=== PATIENT | male | born 1975 | race Two or more races ===

== ENCOUNTER 2018-01-25 15:26 | Emergency (ER) | payer SELFPAY ==
[2018-01-25 15:44] LABS: ADD MAN DIFF? NO
[2018-01-25 15:48] LABS: BASO # 0.1 x10^3/uL (0.0-0.2); BASO % 1 % (0-3); EOS % 0 % (0-3); HEMATOCRIT 42.6 % (39.0-53.0); HEMOGLOBIN 14.9 g/dL (13.0-17.5); LYMPH # 0.9 x10^3/uL (1.0-4.8); LYMPH % 17 % (24-48); MEAN CORPUSCULAR HEMOGLOBIN 33 pg (25-35); MEAN CORPUSCULAR HGB CONC 35 g/dL (31-37); MEAN CORPUSCULAR VOLUME 94 fL (79-100); MONO # 0.3 x10^3/uL (0.0-1.1); MONO % 6 % (0-9); NEUT # 3.8 x10^3uL (1.8-7.7); NEUT % 75 % (31-73); PLATELET COUNT 195 x10^3/uL (140-400); RED BLOOD COUNT 4.54 x10^6/uL (4.30-5.70); RED CELL DISTRIBUTION WIDTH 12.9 % (11.5-14.5); WHITE BLOOD COUNT 5.1 x10^3/uL (4.0-11.0)
[2018-01-25] MEDS: IV NORMAL SALINE 1000ML BAG 1,000 ML IV (15:49)
[2018-01-25 15:56] LABS: POC GLUCOSE 219 mg/dL (70-99)
[2018-01-25 15:59] LABS: ANION GAP 16 (6-14); BLOOD UREA NITROGEN 10 mg/dL (8-26); BUN/CREATININE RATIO 13 (6-20); CALCIUM 8.6 mg/dL (8.5-10.1); CARBON DIOXIDE 21 mmol/L (21-32); CHLORIDE 97 mmol/L (98-107); CREATININE 0.8 mg/dL (0.7-1.3); GFR 105.5; GLUCOSE 237 mg/dL (70-99); POTASSIUM 4.1 mmol/L (3.5-5.1); SODIUM 134 mmol/L (136-145)
[2018-01-25 16:00] LABS: ETHANOL 38 mg/dL (0-10)
[2018-01-25 16:05] LABS: ALBUMIN 4.2 g/dL (3.4-5.0); ALBUMIN/GLOBULIN RATIO 1.1 (1.0-1.7); ALK PHOS 84 U/L (46-116); ALT (SGPT) 218 U/L (16-63); AST (SGOT) 128 U/L (15-37); CREATINE KINASE 558 U/L (39-308); TOTAL BILIRUBIN 0.7 mg/dL (0.2-1.0)
== END 2018-01-25 17:19 | disposition home or self-care (01) ==
LOC: ER 15:26
DX: E86.0 Dehydration (principal); M54.5 Low back pain; I10 Essential (primary) hypertension; E78.00 Pure hypercholesterolemia, unspecified; F10.129 Alcohol abuse with intoxication, unspecified
CPT/HCPCS: 36415; 71045; 80053; 82550; 82962; 85025; 93005; 96360; 99285-25; G0480; J7030